=== PATIENT | male | born 1975 | race Caucasian/White ===

== ENCOUNTER 2017-11-17 12:41 | Inpatient (IN) | payer BC, OTHER ==
[~2017-11-17] VITALS: Ht 180.3 cm; Wt 56.7 kg
[2017-11-17 13:39] VITALS: BP 136/75
[2017-11-17] MEDS ORDERED: MAG HYDROX/AL HYDROX/SIMETH 30 ML LIQUID UDC PO PRN (13:45)
[2017-11-17] MEDS ORDERED: IBUPROFEN 400 MG TABLET PO PRN (13:45)
[2017-11-17] MEDS ORDERED: MIRALAX 17 GM POWD.PACK PO PRN (13:45)
[2017-11-17] MEDS ORDERED: THIAMINE HCL 200 MG/2 ML VIAL IM ONE (13:45)
[2017-11-17] MEDS ORDERED: ONDANSETRON 4 MG/2 ML VIAL IM PRN (13:45)
[2017-11-17] MEDS ORDERED: ACETAMINOPHEN 325 MG TABLET PO PRN (13:45)
[2017-11-17] MEDS ORDERED: DICYCLOMINE HCL 20 MG TABLET PO PRN (13:45)
[2017-11-17] MEDS ORDERED: LORAZEPAM 2 MG/1 ML VIAL IM PRN (13:45)
[2017-11-17] MEDS ORDERED: MAGNESIUM HYDROXIDE 30 ML LIQUID UDC PO PRN (13:45)
[2017-11-17] MEDS ORDERED: LOPERAMIDE HCL 2 MG CAPSULE PO PRN ×2 (13:45)
[2017-11-17] MEDS: GABAPENTIN 300 MG CAPSULE PO SCH ×2 (14:54→21:09)
--- NOTE | 2017-11-17 15:30 | NUR ---
INTAKE ASSESSMENT Patient is 42 male patient presented for admission for supervised withdrawal from alcohol. Alert and oriented X4, full code, with allergy to codeine. Vital signs: 136/75, HR 113, R 18, 02 sat 98% RA, temp 98.4, pain 8/10 on bilateral arms and legs. Patient anxiety, tremors, headache, nausea, stomach cramps, numbing sensation on bilateral arms and legs and reports mild auditory hallucinations. [place] routines explained to patient (i.e q4h vital, medication handling including narcotics , disposal of any contraband. Patient appears to be stable to proceed with his admission to [facility] for further care. Patient has no home meds.
[2017-11-17 16:00] VITALS: BP 103/70
--- NOTE | 2017-11-17 17:00 | NUR ---
ADMISSION NOTE: Patient is 42yo male admitted for supervised alcohol withdrawal. Alert and oriented X4, full code, with allergy to codeine. Denies SOB and chest pain. Patient reports he had L1 fracture, history of surgery on bilateral knees due to torn ACLs and surgery on both feet back in college days. Denies history of seizure, last fall was in September 2017. childcare attendant at bedside for unsteady gait. Denies suicidal and homicidal ideation. CIWA on admission was 11. Patient reports symptoms such as anxiety, tremors, headache, nausea, stomach cramps, numbing sensation on bilateral arms and legs and reports mild auditory hallucinations. Skin in intact. Patient has PCP at this time. Patient has no home meds. Substance use history per patient report: - alcohol (Vodka) - pt. reports last use was 11/17/17, reports last drink was at 05:55am and drank few sips while girlfriend who was also present at the time reported that patient drank a shot prior to admission. Patient reports he was sober for 2 weeks and started drinking again on 11/06/17, drinking 2 pints/day.
[2017-11-17] MEDS: LORAZEPAM 1 MG TABLET PO PRN ×4 (17:46→19:33)
--- NOTE | 2017-11-17 17:46 | NUR ---
PRN MAALOX AND ATIVAN Patient complained of heart burn and anxiety with CIWA of 9. PRN maalox and ativan 1mg po tab given. Will continue to monitor patient.
[2017-11-17 18:02] LABS: BASOPHILS % (AUTO) 0.2 % (0.0-2.0); HEMATOCRIT 42.5 % (36.7-47.1); HEMOGLOBIN 14.3 g/dL (12.5-16.3); LYMPHOCYTES # (AUTO) 1.3 K/uL (20.0-40.0); LYMPHOCYTES % (AUTO) 11.4 % (20.5-51.5); MEAN CORPUSCULAR HEMOGLOBIN 32.3 uug (23.8-33.4); MEAN CORPUSCULAR HGB CONC 34 g/dL (32.5-36.3); MEAN CORPUSCULAR VOLUME 95.9 fL (73.0-96.2); MONOCYTES # (AUTO) 0.3 K/uL (2.0-10.0); MONOCYTES % (AUTO) 3.1 % (0.0-11.0); NEUTROPHILS # (AUTO) 9.4 K/uL (1.8-8.9); NEUTROPHILS % (AUTO) 85.3 % (38.5-71.5); PLATELET COUNT (AUTO) 171 K/uL (152-348); RED BLOOD CELL COUNT(AUTO) 4.43 MIL/uL (4.06-5.63); WHITE BLOOD COUNT (AUTO) 11.1 K/uL (3.6-10.2)
[2017-11-17 18:04] LABS: BILIRUBIN,TOTAL 0.4 mg/dL (0.2-1.0); CREATININE 0.9 mg/dL (0.6-1.3); MAGNESIUM 1.8 mg/dL (1.8-2.4); POTASSIUM 4.4 mmol/L (3.5-5.1); TOTAL PROTEIN, SERUM 7.9 g/dL (6.4-8.2)
--- NOTE | 2017-11-17 18:35 | NUR ---
CRITICAL VALUE Received call from the lab. Patient's alcohol level is 312.
--- NOTE | 2017-11-17 18:46 | NUR ---
REASSESSMENT PRN MAALOX AND ATIVAN Patient reports heart burn and anxiety resolved. CIWA is 6
--- NOTE | 2017-11-17 19:18 | NUR ---
END OF SHIFT Patient is 42yo male admitted for supervised alcohol withdrawal. Alert and oriented X4, full code, with allergy to codeine. Denies SOB and chest pain. Patient reports he had L1 fracture, history of surgery on bilateral knees due to torn ACLs and surgery on both feet. Denies history of seizure, last fall was in September 2017. chemical dependency attendant at bedside for unsteady gait. Denies suicidal and homicidal ideation. PRN Ativan 1 mg given for CIWA 9. Most recent CIWA 6. Patient reports symptoms such as anxiety, tremors, numbing sensation and sweating. night nursenightman will continue to monitor patient.
--- NOTE | 2017-11-17 19:18 | NUR ---
START OF SHIFT NOTE 42 years old male presented for Alcohol /Vodka withdrawal. 5 Day Ativan Taper starting on 11/18/2017. Patient is on PRN Medications with tolerated well. Patient is alert and oriented x4. Patient noted unshaven, with uncombed hair. 1:1 sitter at bedside for safety/unsteady gait as ordered. Last CIWA= 6 @1600 per day shift nurse report. Patient c/o anxiety, agitation, nervousness, tremors, abdominal pain, sweating, and restlessness. PRN Ativan 1 mg PO for CIWA=9 and PRN Maalox PO for heartburn administrated by day shift nurse, and were effective. Patient encouraged to increasing oral fluids. Patient endorsed by day shift nurse, report received. All needs met. Safety measures on place. Call light within reach, bed in lowest position locked, padded rails up bilaterally. Will continue to monitor closely.
--- NOTE | 2017-11-17 19:22 | NUR ---
PRN ATIVAN 2 MG PO ADMINISTRATION PRN ATIVAN 2 MG PO ADMINISTRATED BRYCE CIWA=14 ORDERED. PATIENT TOLERATED WELL. ALL NEEDS MET. 1:1 SITTER AT BEDSIDE ORDERED FOR SAFETY/UNSTEADY GAIT. SAFETY MEASURES IN PLACE: CALL LIGHT WITHIN REACH, BEDIS LOWEAT POSITION LOCKED, PADDED BED RAILS UPX2. WILL CONTINUE TO MONITOR CLOSELY. Addendum: 11/17/17 at 2146 by GERA CAMARGO RN PRN ATIVAN 2 MG PO ADMINISTRATED FOR CIWA=16 ORDERED.
--- NOTE | 2017-11-17 20:22 | NUR ---
RE-ASSESSMENT PATIENT IS SLEEPING. RESPIRATIONS ARE EVEN AND UNLABORED. RR=16. PRN ATIVAN 2 MG PO FOR CIWA=16 ADMINISTRATED @1922 WAS EFFECTIVE. ALL NEEDS MET. 1: SITTER AT BEDSIDE FOR SAFETY/UNSTEADY GAIT ORDERED. SAFETY MEASURES IN PLACE: CALL LIGHT WITHIN REACH, BED IS LOCKED IN LOWEST POSITION, BED RAILS UP X2. WILL CONTINUE TO MONITOR CLOSELY.
[2017-11-17 21:00] VITALS: BP 108/71
[2017-11-17] MEDS: diphenhydrAMINE 50 MG CAPSULE PO PRN (21:09)
--- NOTE | 2017-11-17 21:09 | NUR ---
PRN BENADRYL 50 MG 1 CAPSULE PO ADMINISTRATION PATIENT C/O INSOMNIA AND ASKED AID. PRN BENADRYL 50 MG 1 CAPSULE PO FOR INSOMNIA ADMINISTRATED ORDERED. PATIENT TOLERATED WELL. ALL SAFETY MEASURES IN PLACE: CALL LIGHT WITHIN REACH, BED LOCKED IN LOWEST POSITION, PADDED BED RAILS UP X2. WILL CONTINUE TO MONITOR CLOSELY.
--- NOTE | 2017-11-17 22:09 | NUR ---
RE-ASSESSMENT PATIENT IS SLEEPING. RESPIRATIONS ARE EVEN AND UNLABORED. RR:17. PRN BENADRYL 50 MG 1 CAPSULE PO ADMINISTRATED FOR INSOMNIA @2108 WAS EFFECTIVE. 1:1 SITTER AT BEDSIDE ORDERED FOR SAFETY/UNSTEADY GAIT. ALL NEEDS MET. SAFETY MEASURES IN PLACE: CALL LIGHT WITHIN REACH, BED IS LOCKED IN LOWEST POSITION, BED RAILS UP X2. WILL CONTINUE TO MONITOR CLOSELY.
[2017-11-18] VITALS: BP 108/75
[2017-11-18 04:00] VITALS: BP 95/62
[2017-11-18] MEDS: LORAZEPAM 1 MG TABLET PO PRN ×2 (04:59→05:02)
--- NOTE | 2017-11-18 05:02 | NUR ---
PRN ATIVAN 2 MG PO ADMINISTRATION PRN ATIVAN 2 MG PO ADMINISTRATED FOR CIWA=16 ORDERED. PATIENT TOLERATED WELL. ALL NEEDS MET. 1:1 SITTER AT BEDSIDE ORDERED FOR SAFETY/UNSTEADY GAIT. SAFETY MEASURES IN PLACE: CALL LIGHT WITHIN REACH, BED IS LOWEST POSITION LOCKED, PADDED BED RAILS UP X2. WILL CONTINUE TO MONITOR CLOSELY.
--- NOTE | 2017-11-18 06:02 | NUR ---
RE-ASSESSMENT CIWA= 10. PATIENT REPORTS "MY ANXIETY AND MY TREMORS DECREASED, AND I AM NOT SO SHAKY BEFORE". PRN ATIVAN 2 MG PO ADMINISTRATED @0502 FOR CIWA=16 WAS EFFECTIVE. ALL NEEDS MET. 1:1 SITTER AT BEDSIDE FOR SAFETY/UNSTEADY GAIT. ALL NEEDS MET. SAFETY MEASURES IN PLACE: CALL LIGHT WITHIN REACH, BED IN LOWEST POSITION LOCKED, PADDED BED RAILS UP X2. WILL CONTINUE TO MONITOR CLOSELY.
[2017-11-18 06:31] LABS: *AMPHETAMINE, URINE NEGATIVE (NEGATIVE); *BARBITURATE, URINE NEGATIVE (NEGATIVE); *CANNABINOID, URINE NEGATIVE (NEGATIVE); *COCCAINE, URINE NEGATIVE (NEGATIVE); *OPIATE, URINE NEGATIVE (NEGATIVE); *PHENCYCLIDINE SCREEN,URINE NEGATIVE (NEGATIVE)
--- NOTE | 2017-11-18 06:45 | NUR ---
END OF SHIFT NOTE Presented patient is a 42 year old male continues on ordered PRN Medications for Alcohol/Vodka withdrawal. He is reports Allergy to Codeine, is on Full Code, Regular Diet, is on Fall and Seizures Precautions. Patient denies History of withdrawal-induced seizures. Patient denies SI/HI. Patient is alert and oriented x4. Patient noted unshaven, with uncombed hair. He appears diaphoretic, undernourished with red eyes. Patient appears sad, with poor eye contact. Education in safety and hygiene care provided to patient. Encouraged to independently perform hygiene care. CIWA= 16 @1922. CIWA=7 @0000, CIWA=9 @0400, CIWA=16 @0502. Last CIWA=10 @0602. Patient presented with anxiety, agitation, nervousness, depression, tremors, stomach pain, sweating, fatigue, restlessness, and insomnia. PRN Ativan 2 mg PO administrated x2 for CIWA=16 @1922, @0502, and PRN Benadryl 50 mg 1 capsule PO administrated for insomnia @2109 were effective. Patient slept 9 hours, intake 1,796 ml, voided x3. Safe and calm environment with minimized noises was provided. Patient encouraged to increase oral fluid intake as tolerated. Patient encouraged to attend group activities. All needs met. Safety measures in the place: 1:1 sitter at bedside with patient for safety/unsteady gait as ordered. Call light within reach, bed in the lowest position and locked, padded rails up x2. Patient endorsed to day shift nurse.
--- NOTE | 2017-11-18 07:15 | NUR ---
Start of Shift Notes: Endorsement received from night nurse. Patient is a 42 year old male admitted for ETOH withdrawal who was placed on a 5-day Ativan taper as ordered. Alert and oriented x 4. Denies AV hallucinations. 1:1 at bedside and within arm's reach. Slept for 7 hours. Educated patient on his current plan of care for the day and his medication regimen. Encouraged oral fluid intake and encouraged group participation to learn new skills to prevent relapse. Will continue to monitor.
[2017-11-18 08:00] VITALS: BP 118/77
[2017-11-18] MEDS: LORAZEPAM 1 MG TABLET PO SCH ×4 (08:25→20:18)
[2017-11-18] MEDS: FOLIC ACID 1 MG TABLET PO SCH (08:25)
[2017-11-18] MEDS: GABAPENTIN 300 MG CAPSULE PO SCH ×3 (08:25→20:19)
[2017-11-18] MEDS: DOCUSATE SODIUM 250 MG CAPSULE PO SCH (08:25)
[2017-11-18] MEDS: MULTIVITAMINS,THERAPEUTIC TABLET PO SCH (08:25)
[2017-11-18] MEDS: THIAMINE HCL 100 MG TABLET PO SCH (08:25)
[2017-11-18] MEDS ORDERED: TUBERCULIN,PURIF.PROT.DERIV. 5 TU/0.1 ML TEST ID ONE (09:00)
[2017-11-18] MEDS ORDERED: 5 DAY TAPER OF LORAZEPAM -SERENITY PROTOCOL PO PRN (09:00)
[2017-11-18 12:00] VITALS: BP 120/83
[2017-11-18] MEDS: ONDANSETRON ODT 4 MG TAB.RAPDIS SL PRN (14:05)
--- NOTE | 2017-11-18 14:05 | NUR ---
Zofran 4mg ODT/Bentyl 20 mg PO given: Patient noted with complain of nausea. No vomiting noted. Also with complain of intermitten abdominal cramping. Medicated patient with Zofran 4 mg ODT and Bentyl 20 mg PO as ordered. Will monitor for effectiveness.
--- NOTE | 2017-11-18 15:05 | NUR ---
Re-assessment: Zofran/Bentyl Patient states that Zofran was able to help cease nausea and relief from abdominal cramps noted. PRN Zofran and Bentyl were effective.
[2017-11-18 16:00] VITALS: BP 130/96
--- NOTE | 2017-11-18 19:01 | NUR ---
End of Shift Notes: Patient continues to be on 5-day Ativan taper as ordered. No adverse reactions noted. VS monitored closely. No significant abnormalities noted. Withdrawal symptoms were closely monitored. Initial CIWA 14, patient presented with diaphoresis, anxiety, agitation, gross tremors, fatigue. Medicated patient with Zofran and Bentyl at 1405 with help after 1 hour. Continues to be on 1:1 due to high risk for falls due to unsteady gait. Last CIWA 11. Patient verbalizes that Ativan has been effective in reducing his withdrawal symptoms. Encouraged patient to attend group and activities and to socialize with his peers but he is unable to due to his withdrawal symptoms. All needs met and attended. Will continue to monitor closely.
--- NOTE | 2017-11-18 19:10 | NUR ---
Start of Shift Patient Received. Patient is noted in his room sleeping but easily aroused to verbal stimuli. Breathing even and non labored. Per endorsement, Patient is currently on a 1:1 for unsteady gait and continues on a modified 5 day Ativan taper. Patient is able to tolerate medications well. Patients last noted CIWA 11 and due to increased anxiety, diaphoresis, agitation, tremulous, nausea, and fatigue. Patient was given PRN Zofran with medication noted to be effective. Patient was encouraged patient to attend group, social activities with peers but he is unable to due to withdrawal symptoms. All needs attended to promptly. Will continue plan of care as ordered.
[2017-11-18 20:13] VITALS: BP 119/84
[2017-11-19 00:13] VITALS: BP 111/81
[2017-11-19 04:23] VITALS: BP 107/63
--- NOTE | 2017-11-19 07:10 | NUR ---
End of Shift Patient is in his room sleeping. Breathing even and non labored. Patient is currently on a 1:1 for unsteady gait and continues on a modified 5 day Ativan taper. Patient is compliant with medications and is tolerating plan of care well. Last noted CIWA 13 due to increased diaphoresis, tremors, increased anxiety, and agitation. No PRN Medications administered. Patient is able to verbalize taper medication has been effective in reducing withdrawal effects. Encouraged Fluids as tolerated. All needs attended to promptly. Will endorse continue plan of care as ordered.
--- NOTE | 2017-11-19 07:30 | NUR ---
Start of Shift Notes: Endorsement received from night nurse. Patient is a 42 year old male admitted for ETOH withdrawal who was placed on a 5-day Ativan taper as ordered. Alert and oriented x 4. Denies AV hallucinations. 1:1 at bedside and within arm's reach. Slept for 7 hours. He verbalizes "I feel dehydrated, can I get an IV?" Educated patient on his current plan of care for the day and his medication regimen. Encouraged oral fluid intake and encouraged group participation to learn new skills to prevent relapse. Will continue to monitor.
[2017-11-19 07:45] LABS: BASOPHILS % (AUTO) 0.2 % (0.0-2.0); EOSINOPHILS # (AUTO) 0.1 K/uL (0.0-0.7); EOSINOPHILS % (AUTO) 1.4 % (0.0-7.0); HEMATOCRIT 39.6 % (36.7-47.1); HEMOGLOBIN 13.5 g/dL (12.5-16.3); LYMPHOCYTES # (AUTO) 0.8 K/uL (20.0-40.0); MEAN CORPUSCULAR HEMOGLOBIN 32.9 uug (23.8-33.4); MEAN CORPUSCULAR HGB CONC 34 g/dL (32.5-36.3); MEAN CORPUSCULAR VOLUME 96.5 fL (73.0-96.2); MONOCYTES # (AUTO) 0.4 K/uL (2.0-10.0); MONOCYTES % (AUTO) 6.8 % (0.0-11.0); NEUTROPHILS # (AUTO) 4.7 K/uL (1.8-8.9); NEUTROPHILS % (AUTO) 78.6 % (38.5-71.5)
[2017-11-19 07:47] LABS: PLATELET COUNT (AUTO) 106 K/uL (152-348); WHITE BLOOD COUNT (AUTO) 5.9 K/uL (3.6-10.2)
[2017-11-19 08:00] VITALS: BP 123/82
[2017-11-19] MEDS: ONDANSETRON ODT 4 MG TAB.RAPDIS SL PRN (08:28)
[2017-11-19] MEDS: MULTIVITAMINS,THERAPEUTIC TABLET PO SCH (08:29)
[2017-11-19] MEDS: FOLIC ACID 1 MG TABLET PO SCH (08:29)
[2017-11-19] MEDS: THIAMINE HCL 100 MG TABLET PO SCH (08:29)
[2017-11-19] MEDS: GABAPENTIN 300 MG CAPSULE PO SCH ×3 (08:29→20:59)
[2017-11-19] MEDS: LORAZEPAM 1 MG TABLET PO SCH ×3 (08:29→20:59)
[2017-11-19] MEDS: DOCUSATE SODIUM 250 MG CAPSULE PO SCH (09:00)
--- NOTE | 2017-11-19 10:39 | NUR ---
Client prompted client to come to all groups/activities today to engage with others and not be isolated in his room. Therapist encouraged client to try to share his feeling/thoughts so he does not build up feelings/thoughts which may negatively impact him. Therapist encouraged client to also meet with therapist if they feel they cannot cope with going to group so they can have one/one therapy session to help process feelings/thoughts.
[2017-11-19 12:00] VITALS: BP 135/94
--- NOTE | 2017-11-19 15:52 | NUR ---
Off 1:1: Patient was taken off 1:1 per MD Jones. Patient is ambulating steadily.
[2017-11-19 16:00] VITALS: BP 128/87
[2017-11-19 16:09] LABS: HEPATITIS B SURFACE AG Negative (Negative)
--- NOTE | 2017-11-19 19:01 | NUR ---
End of Shift Notes: Patient continues to be on 5-day Ativan taper as ordered. No adverse reactions noted. VS monitored closely. No significant abnormalities noted. Withdrawal symptoms were closely monitored. Initial CIWA 14, patient presented with gross tremors, nausea, diarrhea. sweating, facial flushing anxiety/agitation. Patient was taken off 1:1. Gait has been steady. Medicated patient with Imodium 4 mg and Zofran at 0828 with help after 1 hour. Last CIWA 9. Compliant with care and treatment. All needs met and attended. Patient was able to participate in group and activities. All needs met and attended. Will continue to monitor closely.
--- NOTE | 2017-11-19 19:30 | NUR ---
START OF SHIFT Received 42 year old male patient. Pt is alert and oriented x4. He is noted to be anxious, agitated and restless. Per endorsement, pt received PRN Zofran. Breathing is even and unlabored, safety measures in place. Will continue to monitor.
[2017-11-19 20:00] VITALS: BP 130/90
[2017-11-19] MEDS: diphenhydrAMINE 50 MG CAPSULE PO PRN (20:59)
--- NOTE | 2017-11-19 20:59 | NUR ---
PRN BENADRYL Pt complains of inability to sleep. PRN Benadryl administered as ordered. Breathing even and unlabored, safety measures in place. Will continue to monitor effectiveness.
--- NOTE | 2017-11-19 21:59 | NUR ---
PRN REASSESSMENT PRN medication effective. Pt lying in bed with eyes closed noted to be asleep. Breathing is even and unlabored. Safety measures in place. Will continue to monitor.
[2017-11-20] VITALS: BP 119/76
[2017-11-20 04:00] VITALS: BP 110/81
--- NOTE | 2017-11-20 07:22 | NUR ---
END OF SHIFT Pt is a 42 year old male patient. Pt remains alert and oriented x4. He was noted to be anxious, agitated and restless during the shift. He received PRN Benadryl for insomnia and slept a total of 6 hrs, Intake: 1402mL, Void: x3, BM: 0, CIWA:5. Breathing is even and unlabored, safety measures in place. Endorsed to AM shift.
--- NOTE | 2017-11-20 07:30 | NUR ---
START OF SHIFT Pt is a 42 yr old male, AA&Ox4. Pt was admitted on 11/17/17 for ETOH withdrawal and is on 5 day Ativan taper as ordered. Received report from umbrella tipper machine nurse. Pt received Benadryl PRN for sleep. Pt states of sleeping well through the night and slept for 6 hrs. Pt is c/o headache. Skin is intact, warm and moist to touch. Pt was encouraged increase fluid intake. Safety precautions observed. Call light is within reach. Will continue to monitor.
[2017-11-20 08:13] VITALS: BP 105/77
[2017-11-20] MEDS: GABAPENTIN 300 MG CAPSULE PO SCH ×3 (08:45→20:37)
[2017-11-20] MEDS: THIAMINE HCL 100 MG TABLET PO SCH (08:45)
[2017-11-20] MEDS: LORAZEPAM 1 MG TABLET PO SCH ×4 (08:45→20:37)
[2017-11-20] MEDS: DOCUSATE SODIUM 250 MG CAPSULE PO SCH (08:45)
[2017-11-20] MEDS: FOLIC ACID 1 MG TABLET PO SCH (08:45)
[2017-11-20] MEDS: MULTIVITAMINS,THERAPEUTIC TABLET PO SCH (08:54)
[2017-11-20] MEDS ORDERED: PNEUMOCOCCAL 23-VAL P-SAC VAC 0.5 ML VIAL IM ONE (09:00)
[2017-11-20 12:00] VITALS: BP 119/86
[2017-11-20 16:00] VITALS: BP 134/96
--- NOTE | 2017-11-20 18:59 | NUR ---
END OF SHIFT Pt is a 42 yr old male, AA&Ox4. Pt was admitted on 11/17/17 for ETOH withdrawal and is on 5 day Ativan taper as ordered. medication norma well. Pt has been cooperative with medication regimen and plan of care. Pt was noted to attend group therapy. Pt c/o anxiety but was able to cope with anxiety level. Skin is intact, warm and moist to touch. Fine tremors are felt on bilateral hands. Pt states of having x1 episode of diarrhea. Imodium PRN was offered but pt refused to take. Colace 250mg PO as scheduled was discontinued. Last CIWA score was 9 at 1600. Pt was encouraged to drink plenty of fluids for hydration. Safety precautions observed. Call light is within reach.
[2017-11-20 20:00] VITALS: BP 117/90
--- NOTE | 2017-11-20 20:00 | NUR ---
START OF SHIFT NOTE RECEIVED REPORT FROM DAY SHIFT NURSE. PATIENT IS A 42 YEAR OLD MALE ADMITTED FOR ETOH WITHDRAWAL. PATIENT IS ON 5 DAY ATIVAN TAPER. PATIENT HAD EPISODE OF DIARRHEA X 1. REFUSED IMODIUM. COLACE WAS D/C. PATIENT DID NOT REQUIRE PRN MEDICATION. LAST CIWA 9. RECEIVED PATIENT IN THE ROOM WITH FLAT AFFECT, ANXIOUS, SAD , WORRIED, RESTLESS AND REPORTS INSOMNIA. ENCOURAGE FLUIDS. SAFETY MEASURES IN PLACE. CALL LIGHT IN REACH. WILL CONTINUE TO MONITOR
[2017-11-20] MEDS: diphenhydrAMINE 50 MG CAPSULE PO PRN (20:37)
--- NOTE | 2017-11-20 20:37 | NUR ---
PRN BENADRYL ADMINISTRATION PATIENT REQUESTS FOR SLEEP AID.WILL MONITOR FOR EFFECTIVENESS
--- NOTE | 2017-11-20 22:00 | NUR ---
PRN BENADRYL RE-ASSESSMENT PATIENT IN BED WITH EYES CLOSED. RESPIRATION EVEN AND UNLABORED. WILL CONTINUE TO MONITOR
--- NOTE | 2017-11-21 | NUR ---
CIWA DEFERRED PATIENT SLEEPING. VS REFUSED. RESPIRATION EVEN AND UNLABORED. SAFETY MEASURES IN PLACE. WILL CONTINUE TO MONITOR
--- NOTE | 2017-11-21 04:00 | NUR ---
CIWA DEFERRED PATIENT SLEEPING. VS REFUSED. RESPIRATION EVEN AND UNLABORED. SAFETY MEASURES IN PLACE. WILL CONTINUE TO MONITOR
--- NOTE | 2017-11-21 07:11 | NUR ---
END OF SHIFT PATIENT SLEPT 8 HOURS. FLUID INTAKE 855 ML. VOIDED X 3 . NO BM. MONITORED PATIENT THROUGHOUT SHIFT. PATIENT WAS ANXIOUS, SAD , WORRIED, RESTLESS AND REPORTS INSOMNIA BEGINNING OF SHIFT. PRN BENADRYL GIVEN. PATIENT IN HIS ROOM MOST OF THE SHIFT. AT 2036, PATIENT REQUESTED PRN SLEEP AID. PRN BENADRYL GIVEN. PATIENT COMPLIANT WITH MEDICATION AND TREATMENT PLAN. ENCOURAGE FLUIDS. SAFETY MEASURES IN PLACE. CALL LIGHT IN REACH. WILL CONTINUE TO MONITOR . LAST CIWA 5 .
--- NOTE | 2017-11-21 07:30 | NUR ---
START OF SHIFT RECEIVED PT LAYING IN BED, RESPIRATIONS EVEN AND UNLABORED. PT REPORTS HAVING ANXIETY, RESTLESSNESS, ANHEDONIA. ENCOURAGED PT TO PARTICIPATE IN GROUPS AND ACTIVITIES TO PROMOTE COPING SKILLS. PT VERBALIZED UNDERSTANDING. SIDE RAILS UPX2, BED IN LOWEST POSITION. CALL LIGHT WITHIN REACH. WILL CONTINUE TO MONITOR.
[2017-11-21 08:00] VITALS: BP 103/71
[2017-11-21] MEDS: THIAMINE HCL 100 MG TABLET PO SCH (09:25)
[2017-11-21] MEDS: FOLIC ACID 1 MG TABLET PO SCH (09:25)
[2017-11-21] MEDS: GABAPENTIN 300 MG CAPSULE PO SCH ×3 (09:25→21:01)
[2017-11-21] MEDS: MULTIVITAMINS,THERAPEUTIC TABLET PO SCH (09:25)
[2017-11-21] MEDS: LORAZEPAM 1 MG TABLET PO SCH ×2 (09:25→14:29)
[2017-11-21 12:00] VITALS: BP 116/89
--- NOTE | 2017-11-21 14:44 | NUR ---
PRN MILK OF MAGNESIUM GIVEN FOR CONSTIPATION. WILL MONITOR FOR EFFECTIVENESS.
--- NOTE | 2017-11-21 15:45 | NUR ---
REASSESSMENT PT REPORTED HE WAS UNABLE TO HAVE A BM YET, BUT WANTS TO WAIT A LITTLE LONGER. WILL CONTINUE TO MONITOR.
[2017-11-21 16:00] VITALS: BP 113/86
--- NOTE | 2017-11-21 17:28 | NUR ---
PRN PT REQUESTED TO HAVE MIRALAX FOR HIS CONSTIPATION. MIRALAX GIVEN WITH CRANBERRY JUICE. WILL MONITOR FOR EFFECTIVENESS.
--- NOTE | 2017-11-21 18:52 | NUR ---
END OF SHIFT LAST CIWA 8 @1600. PT HR WAS ELEVATED THROUGHOUT SHIFT. PT REPORTED HAVING ANXIETY BUT REFUSED MEDS. PT C/O CONSTIPATION. MILK OF MAG AND MIRALAX WAS GIVEN ON SHIFT. EFFECTIVENESS STILL PENDING. PT HAS BEEN COMPLIANT WITH TREATMENT AND PARTICIPATED IN GROUPS. WILL GIVE ENDORSEMENT AND PERTINENT INFO TO MARSH BUGGY OPERATOR NURSE.
--- NOTE | 2017-11-21 19:30 | NUR ---
START OF SHIFT NOTE : Patient is a 42 year old male admitted for ETOH withdrawal who was placed on a 5-day Ativan taper as ordered, tolerating well. PRN MoM, Miralax given during day shift. Pt. is resting in the room, watching TV, restless time to time. CIWA=8 at 16:00. He complains of visible tremor time to time, insomnia, increased level of anxiety, flashes. Alert and oriented x 4. Educated patient regarding the importance of compliance to treatment and medication regime, patient verbalized understanding. Encouraged patient to participate in all unit activities and socializing more with other clients. Safety measures in place : bed on lowest position with side rails x2 up for safety, all light within reach. Will continue to monitor closely and offer help.
[2017-11-21 20:00] VITALS: BP_SYST 126
[2017-11-21] MEDS ORDERED: LORAZEPAM 1 MG TABLET PO SCH (21:00)
--- NOTE | 2017-11-21 21:00 | NUR ---
PRN BENADRYL Pt. complains of difficulty falling asleep, insomnia. PRN BENADRYL given as ordered. Safety measures in place : bed on lowest position with side rails x2 up for safety, call light within reach. Will continue to monitor closely and offer help.
[2017-11-21] MEDS: diphenhydrAMINE 50 MG CAPSULE PO PRN (21:01)
--- NOTE | 2017-11-21 22:00 | NUR ---
RE-ASSESSMENT JAXSON Pt. is sleeping, RR=16, unlabored and even . Safety measures in place : bed on lowest position with side rails x2 up for safety, call light within reach. Will continue to monitor closely and offer help.
[2017-11-22 05:00] VITALS: BP 90/50
--- NOTE | 2017-11-22 06:20 | NUR ---
START OF SHIFT NOTE : Patient is a 42 year old male admitted for ETOH withdrawal who was placed on a 5-day Ativan taper as ordered, tolerating well. . Pt. is compliant with a TX plan, PRN BENADRYL given during satellite dish repairer . CIWA taken when pt. was awake, last CIWA=6 at 04:00. Yvoigl=680 , voided x2, BM=x2, slept=7 hours. Safety measures in place : bed on lowest position with side rails x2 up for safety, all light within reach. Will continue to monitor closely and offer help. Addendum: 11/22/17 at 0622 by DARRIUS PAN RN This is END OF SHIFT NOTE .
--- NOTE | 2017-11-22 07:23 | NUR ---
START OF SHIFT RECEIVED PT LAYING IN BED, A/OX4, RESPIRATIONS EVEN AND UNLABORED. PT REPORTS HAVING RESTLESSNESS, PRESENTS AGITATION WITH A FLAT AFFECT. ENCOURAGED PT TO PARTICIPATE IN GROUPS AND ACTIVITIES TO PROMOTE COPING MECHANISMS. SIDE RAILS UPX2, BED IS IN LOWEST POSITION. CALL LIGHT WITHIN REACH. ALL SAFETY MEASURES IN PLACE. WILL CONTINUE TO MONITOR.
[2017-11-22 08:00] VITALS: BP 106/72
--- NOTE | 2017-11-22 08:39 | NUR ---
PRN PT C/O NAUSEA AND GENERALIZED BODY ACHES. ZOFRAN 4 MG SL PRN AND ROBAXIN 750 MG PO PRN GIVEN. WILL MONITOR FOR EFFECTIVENESS.
[2017-11-22] MEDS: FOLIC ACID 1 MG TABLET PO SCH (08:48)
[2017-11-22] MEDS: LORAZEPAM 1 MG TABLET PO SCH ×2 (08:48→21:01)
[2017-11-22] MEDS: THIAMINE HCL 100 MG TABLET PO SCH (08:48)
[2017-11-22] MEDS: GABAPENTIN 300 MG CAPSULE PO SCH ×3 (08:48→21:01)
[2017-11-22] MEDS: MULTIVITAMINS,THERAPEUTIC TABLET PO SCH (08:48)
--- NOTE | 2017-11-22 09:40 | NUR ---
REASSESSMENT PT REPORTED MEDS WERE EFFECTIVE FOR NAUSEA AND GENERALIZED BODY ACHES. WILL CONTINUE TO MONITOR.
[2017-11-22 12:00] VITALS: BP 126/81
[2017-11-22] MEDS: DOCOSANOL 2 GM CREAM TP SCH ×3 (14:11→21:01)
--- NOTE | 2017-11-22 15:48 | NUR ---
Therapist prompted client to attend the morning therapy group. Client stated that he would attend.
[2017-11-22 16:00] VITALS: BP 125/88
--- NOTE | 2017-11-22 19:27 | NUR ---
END OF SHIFT LAST CIWA 8 @1600. PT CONTINUES TO BE ON A MODIFIED ATIVAN TAPER AND TOLERATING WELL. PT HAS BEEN COMPLIANT WITH THE THERAPEUTIC REGIMEN. PT PARTICIPATED AND ATTENDED ALL GROUPS. PT REQUESTED MEDICATION FOR COLD SORE ON SIDE OF MOUTH; ABREVA ORDERED AND GIVEN. NO PRNS GIVEN. ALL SAFETY MEASURES IN PLACE. WILL GIVE ENDORSEMENT TO BANNER PAINTER NURSE.
--- NOTE | 2017-11-22 19:45 | NUR ---
Start of Shift Note Received 42 y/o male px, admitted on 11/17/2017 for medically supervised withdrawal from ETOH. Px was placed in 5 day Ativan taper, started 11/18/2017. Px is currently tolerating it. During rounds, px is awake on bed in fowlers position, watching TV. Px stated "my anxiety right now is 7/10". Last reported CIWA 8 by AM shift nurse. Bed on lowest position, side rails up 2x, and call light within reach. We'll continue to monitor.
[2017-11-22 20:00] VITALS: BP 140/94
[2017-11-22] MEDS: diphenhydrAMINE 50 MG CAPSULE PO PRN (21:01)
[2017-11-22] MEDS: VALACYCLOVIR HCL 500 MG TABLET PO SCH (21:01)
--- NOTE | 2017-11-22 21:01 | NUR ---
PRN Benadryl Px was given Benadryl 50 mg/cap, 1 cap PO as PRN med for insomnia as requested by the px. We'll continue to monitor.
[2017-11-23] VITALS (8 sets, daily range): BP systolic 99–143; BP diastolic 57–95
--- NOTE | 2017-11-23 04:00 | NUR ---
CIWA deferred CIWA deferred at 0000 and 0400 due to the px is asleep, to assess if the px is awake per doctor's order. We'll continue to monitor.
[2017-11-23] MEDS: DOCOSANOL 2 GM CREAM TP SCH ×2 (06:11→09:43)
--- NOTE | 2017-11-23 07:08 | NUR ---
End of Shift Note During the shift at 2101, Benadryl 50 mg given PO as requested for insomnia. It was effective. Px slept for 8 hours. Px's oral intake is 1,500 ml, voided 4x, No BM. Last CIWA 6. At 0630, px is asleep on bed in left side lying position. Bed on lowest position, side rails up 2x and call light within reach. Well continue to monitor. Px endorsed to AM shift nurse.
--- NOTE | 2017-11-23 07:10 | NUR ---
Start of Shift [employer] Consultant received report on 42 year old male admitted on 11/17/17 for medically supervised withdrawal from ETOH. Pt endorses an allergy to Codeine, eats a regular diet and is a full code. PMH consists of multiple surgeries. Pt has a history of falling in September of 2014. Pt currently on an Ativan taper, tolerating well with last recorded CIWA 6 at 2200, per NOC report. Pt was administered Benadryl PRN for insomnia, which was effective with pt sleeping 8 hours. [employer] Consultant encounters pt in his room resting with eyes closed. Rise and fall of chest noted, with even and unlabored respirations. Bed in low position with wheels locked and side rails up x2. Will continue to monitor, support and encourage according to plan of care
[2017-11-23] MEDS ORDERED: LORAZEPAM 1 MG TABLET PO SCH (09:00)
[2017-11-23] MEDS: GABAPENTIN 300 MG CAPSULE PO SCH ×3 (09:05→21:14)
[2017-11-23] MEDS: MULTIVITAMINS,THERAPEUTIC TABLET PO SCH (09:05)
[2017-11-23] MEDS: FOLIC ACID 1 MG TABLET PO SCH (09:05)
[2017-11-23] MEDS: THIAMINE HCL 100 MG TABLET PO SCH (09:05)
[2017-11-23] MEDS: VALACYCLOVIR HCL 500 MG TABLET PO SCH (09:06)
--- NOTE | 2017-11-23 09:44 | NUR ---
Medication Refusal Pt refused medication, " don't need it since the other medication was started."
[2017-11-23] MEDS ORDERED: IBUP-1953 PO (14:59)
[2017-11-23] MEDS ORDERED: DIPH50CA37 PO (14:59)
[2017-11-23] MEDS ORDERED: GABA-534 PO ×2 (14:59)
--- NOTE | 2017-11-23 17:08 | NUR ---
Therapist prompted client to attend daily group therapy sessions. Client stated that he would attend.
--- NOTE | 2017-11-23 19:07 | NUR ---
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 Pt endorses an allergy to Codeine, eats a regular diet and is a full code. PMH consists of multiple surgeries. Pt has a history of falling in September of 2014. Pt currently on an Ativan taper, tolerating well with last recorded CIWA 4 at 1600. No PRN medication administered on my shift. Pt has been calm and cooperative, social with staff and peers and makes his needs known. Polite and pleasant. Flat affect with full range of emotions. Bed in low position with wheels locked and side rails up x2. Will continue to monitor, support and encourage according to plan of care
--- NOTE | 2017-11-23 19:30 | NUR ---
Start of Shift Note Received a 42 y/o male px, admitted on 11/17/2017 for medically supervised withdrawal from ETOH. Px is to be D/C tomorrow 11/24/2017. During the rounds at 1930, px is awake on bed in fowlers position watching TV. Px appears anxious. Px stated "my anxiety is 8/10, maybe I am worried about tomorrow". Px also asked "Can I have Benadryl tonight?" Last reported CIWA 4 by AM shift nurse. Bed in lowest position, side rails up 2x and call light within reach. We'll continue to monitor.
[2017-11-23] MEDS: diphenhydrAMINE 50 MG CAPSULE PO PRN (21:14)
[2017-11-23] MEDS ORDERED: CLONIDINE HCL 0.1 MG TABLET PO PRN (21:15)
--- NOTE | 2017-11-23 21:26 | NUR ---
PRN meds At 2113, px was given Benadryl 50 mg/cap, 1 cap PO for insomnia , and at 2125 Clonidine 0.1 mg/tab, 1 tab PO for BP= 143/91. We'll continue to monitor.
--- NOTE | 2017-11-23 22:30 | NUR ---
Reassessment of BP BP= 129/81 after an hour of administration of Clonidine 0.1 mg PO. We'll continue to monitor.
[2017-11-24] VITALS: BP 114/79
[2017-11-24 04:00] VITALS: BP 119/77
--- NOTE | 2017-11-24 07:25 | NUR ---
End of Shift Note During the shift at 2113, px received Benadryl 50 mg PO for insomnia, it was effective. Px slept for 7 hours. At 2125, Clonidine 0.1 mg PO given for BP= 143/91. It was effective, latest BP= 119/77. Pxs oral intake is 1,600 ml, voided 3x, No BM. Last CIWA 6. At 0630, px is awake on bed in right side lying position. Bed in lowest position, side rails up 2x and call light within reach. We'll continue to monitor. Px endorsed to AM shift nurse.
--- NOTE | 2017-11-24 07:30 | NUR ---
START OF SHIFT Pt 42 y/o male admitted for etoh withdrawal. Pt received in room awake. Pt alert and oriented to name, place, and time. Perrla. Skin warm and dry to touch. Respirations even and unlabored. No hand tremors noted. Last reported ciwa=6 @2100. It was reported that pt slept for 7 hours last night. Pt is scheduled to be discharged today to [facility]. Pt appears excited about discharge. Bed on lowest position with side rails x 2 up for safety. Call light within reach.
[2017-11-24 08:00] VITALS: BP 121/91
[2017-11-24] MEDS: FOLIC ACID 1 MG TABLET PO SCH (08:18)
[2017-11-24] MEDS: MULTIVITAMINS,THERAPEUTIC TABLET PO SCH (08:18)
[2017-11-24] MEDS: THIAMINE HCL 100 MG TABLET PO SCH (08:18)
[2017-11-24] MEDS: GABAPENTIN 300 MG CAPSULE PO SCH (08:18)
--- NOTE | 2017-11-24 09:30 | NUR ---
DISCHARGE Pt 42 y/o male admitted for etoh withdrawal. Pt received in room awake. Pt alert and oriented to name, place, and time. Perrla. Skin warm and dry to touch. Respirations even and unlabored. No hand tremors noted. Pt discharged to [facility]. Pt appears excited about discharge. All belongings, electronic prescriptions , and discharge papers packed in pt bag. No home medications, belongings in cassette, belongings in cabinet noted. Pt denies any SI/HI. VS wnl. No distress noted.
== END 2017-11-24 09:30 | disposition other institution (70) | DRG 895 ==
LOC: SRC 13:21
PROVIDERS: ADMIT Internal Medicine; ATTEND Internal Medicine
PROC: HZ2ZZZZ Detoxification Services for Substance Abuse Treatment (ICD-10-PCS; principal; 2017-11-17)
PROC: HZ41ZZZ Group Counseling for Substance Abuse Treatment, Behavioral (ICD-10-PCS; 2017-11-18)
PROC: HZ31ZZZ Individual Counseling for Substance Abuse Treatment, Behavioral (ICD-10-PCS; 2017-11-19)
DX: F10.230 Alcohol dependence with withdrawal, uncomplicated (principal); D69.6 Thrombocytopenia, unspecified; K70.10 Alcoholic hepatitis without ascites; F43.10 Post-traumatic stress disorder, unspecified; F90.9 Attention-deficit hyperactivity disorder, unspecified type; Y90.8 Blood alcohol level of 240 mg/100 ml or more; Z81.1 Family history of alcohol abuse and dependence; F32.9 Major depressive disorder, single episode, unspecified; R73.9 Hyperglycemia, unspecified; D72.823 Leukemoid reaction; B00.1 Herpesviral vesicular dermatitis
CPT/HCPCS: 36415; 70030-TC; 80307; 83690; 83735; 85025; 86592; 86705; 86803; 87340; 87806; 90732; A4663; G0480; J3411; Q0162; Q0163